=== PATIENT | male | born 1995 | race Caucasian/White ===

== ENCOUNTER 2021-06-29 20:00 | Emergency (ER) | payer OTHER, SELFPAY ==
[2021-06-29 20:15] VITALS: BP 148/87; PULSE 90; RESP 20; TEMP 37; O2SAT 99
--- NOTE | 2021-06-29 20:47 | ED.UPPEXIN ---
HPI - Extremity Injury (Upper) General Stated Complaint: shoulder pain Source: patient and RN notes reviewed Mode of arrival: ambulatory Limitations: no limitations History of Present Illness complaint: injury to: right and shoulder Onset (ago): hour(s) (2) Other injuries: none Handedness: right Place: home Severity: moderate Relieving factors: none Exacerbating factors: movement of extremity Context: other ( Patient states that he threw a tennis ball to his dog then had pain in his right shoulder.) Associated symptoms: denies other symptoms Related Data Home Medications Medication Instructions Recorded Confirmed No Home Medications 06/29/21 06/29/21 Allergies Allergy/AdvReac Type Severity Reaction Status Date / Time No Known Allergies Allergy Verified 06/29/21 20:55 Review of Systems Review of Systems: All systems reviewed & are unremarkable except as noted in HPI and below PMFSH Past Medical History Medical History (Updated 06/29/21 @ 20:54 by Danny Fitzgerald MD) Arnold-Chiari malformation Surgical History Surgical History (Updated 06/29/21 @ 20:49 by Danny Fitzgerald MD) No pertinent past surgical history Social History Social History (Updated 06/29/21 @ 20:49 by Danny Fitzgerald MD) Smoking status: Former smoker Exam Const: General: healthy appearing, no acute distress and alert Nutritional Appearance: well nourished Orientation/consciousness: patient oriented x3 HENMT: Head: normal to inspection Ears: external ears normal Eyes: Conjunctivae: conjunctivae normal Pupils: Equal, round and reactive pupils present EOM: EOMs intact bilaterally Neck: Neck: normal visual inspection Resp: Effort & Inspection: normal respiratory effort Auscultation: clear to auscultation bilaterally Cardio: Rate: regular rate Rhythm: regular rhythm GI: GI Palp: Yes Soft to palpation and No Tenderness to palpation present (GI) Auscultation: normal bowel sounds Back/Spine/Pelvis: Thoracic/Lumbar Spine: thoraco-lumbar ROM normal Skin: General skin exam: normal color Rashes: no rashes Neuro: General: patient oriented x3, moves all extremities, no meningeal signs and no focal motor deficits Speech: normal speech Gait exam (Neuro): Normal gait present Extrem: General: normal to inspection Right upper extremity: shoulder/upper arm normal to inspection, tenderness (moderate over the posterior latissimus dorsi and anterior rotator cuff) and abnormal ROM pain with active ROM in ADduction, in internal rotation and external rotation- Psych: Appearance: grossly normal and well kempt Mental Status: mental status grossly normal Affect: normal affect Attitude: cooperative Thought content: Yes Normal thought content present Discharge Plan Discharge Clinical Impression: Strain of right shoulder Qualifiers: Encounter type: initial encounter Qualified Code(s): S46.911A - Strain of unspecified muscle, fascia and tendon at shoulder and upper arm level, right arm, initial encounter Patient Disposition: Home, Self-Care Condition: Stable Instructions: Muscle Strain (ED), Rotator Cuff Injury (ED) Additional Instructions: wear sling for comfort. Use Tylenol and or Motrin as needed for pain. Follow up with her primary care physician may consider orthopedic referral if symptoms persist Prescriptions: No Action No Home Medications RF: 0 Follow-up/Referrals: Dao Bedoya MD [Primary Care Provider] - Stand Alone Forms: Work/School Release IP Time of Disposition: 20:54
[2021-06-29] MEDS: KETOROLAC (*BKC) 60 MG/2 ML VIAL IM (20:56)
[2021-06-29 20:57] VITALS: BP 137/87; PULSE 90; RESP 20; TEMP 37; O2SAT 97
== END 2021-06-29 21:05 | disposition home or self-care (01) ==
PROVIDERS: Emergency Provider Emergency Medicine; PCP Internal Medicine
DX: S46.911A Strain of unspecified muscle, fascia and tendon at shoulder and upper arm level, right arm, initial encounter (principal)
CPT/HCPCS: 96372; 99283; A4565; J1885

== ENCOUNTER 2021-07-14 18:02 | Outpatient (CLI) | payer OTHER, SELFPAY ==
--- NOTE | ~2021-07-14 | XR_ITS ---
EXAMINATION: XR shoulder RT min 2V DATE: 07/14/2021 18:21 INDICATION: Right shoulder pain post throwing injury one week prior TECHNIQUE: AP internally and externally rotated, AP oblique externally rotated and transscapular Y vi ews of the right shoulder were obtained. COMPARISON: None FINDINGS: Normal alignment. No fracture. Glenohumeral joint is normal. Acromioclavicular joint is normal. Soft tissues are unremarkable. Visualized portions of the lungs are clear. IMPRESSION: Negative right shoulder radiographs. Reviewed, dictated and finalized at location A.
--- NOTE | ~2021-07-14 | XR_ITS ---
EXAMINATION:XR_[id number]_CR DATE: 07/14/2021 18:21 INDICATION: Neck pain post throwing injury TECHNIQUE: AP, lateral and odontoid views of the cervical spine are provided. COMPARISON: None FINDINGS: Straightening of the normal cervical lordosis which could be positional or secondary to muscle spasm. Odontoid is intact. Normal atlantoaxial interval. Vertebral body heights are normal. Disc spaces ar e normal. No significant facet or uncovertebral osteoarthritis. Prevertebral soft tissues are normal. IMPRESSION: 1. Straightening of the normal cervical lordosis which can be positional or secondary to muscle spasm . Otherwise unremarkable cervical spine radiographs. Reviewed, dictated and finalized at location A. IMPRESSION: 1. Straightening of the normal cervical lordosis which can be positional or sec ondary to muscle spasm. Otherwise unremarkable cervical spine radiographs.
== END 2021-07-14 18:03 | disposition home or self-care (01) ==
LOC: CHSIMG 18:04
PROVIDERS: PCP Internal Medicine; Visit Provider Internal Medicine
DX: M25.511 Pain in right shoulder (principal); M54.2 Cervicalgia
CPT/HCPCS: 72040; 73030

== ENCOUNTER 2021-07-28 17:00 | Outpatient (RCR) | payer OTHER, SELFPAY ==
--- NOTE | 2021-07-28 17:56 | PTOPEVAL ---
Thank you for referring Jamie López to [facility].? The patient is scheduled to be seen for therapy? __2__x/week for 10 visits. Please review, sign, date and return this plan of care IMELDA. I agree with and certify that the following plan of care is medically necessary. Referring Physician Date Admitting Provider: Attending Provider: Dao Bedoya MD Referring Provider: *PT Outpatient Evaluation Start: 07/28/21 17:04 Freq: Status: Active Protocol: Document 07/28/21 17:08 [facility] (Rec: 07/28/21 17:56 [facility] [id number]) Therapy Assessment Status Assessment Status Assessment Status Evaluation Outpatient Past Medical History Neurological History Hx Other Neurological Disorders Yes: arnold chiari syndrome Evaluation Information Problem Diagnosis right shoulder and scapular pain Onset 06/23/21 Subjective Information Pt. reports that he developed Query Text:As Reported By Patient/ shoulder after throwing a Family tennis ball with his dog. He states that initial pain was intense and went to the ER. He states that he underwent xray which did not reveal anything. He describes pain through the area of the right shoulder blade. Pt. reports that pain is most with movement. He states that pain is triggered with reaching overhead and behind the back. He reports pain will wake him at night. He states that his goal is to decrease his right shoulder pain. Prior Level of Function Activity Level (Last 3 Months) Occupation factory work Hand Dominance Right Activity of Daily Living Ability Independent Indoor/Home Mobility Independent Community Mobility Independent Stairs Ability Independent Functional Cognition (Planning, Shopping Independent , Taking Medications) Cooking Yes Cleaning Yes Laundry Yes Shopping Yes Driving Yes Pain Assessment Timing of Pain Assessment Timing of Pain Assessment Pre-Treatment Pain Scale Pain Scale Used Numeric (1 - 10) Self Report Pain Assessment Right Scapula Reported Pain Level 4 Pain Aggravating Factors Exercise/Activity,Lifting Pain Behaviors
--- NOTE | 2021-09-27 15:02 | PTOPEVAL ---
Thank you for referring Jamie López to [facility].? The patient is scheduled to be seen for therapy? ____x/week for ___ weeks. Please review, sign, date and return this plan of care IMELDA. I agree with and certify that the following plan of care is medically necessary. Referring Physician Date Admitting Provider: Attending Provider: Dao Bedoya MD Referring Provider: *PT Outpatient Evaluation Start: 07/28/21 17:04 Freq: Status: Active Protocol: Document 09/27/21 14:01 [facility] (Rec: 09/27/21 15:00 [facility] [id number]) Therapy Assessment Status Assessment Status Assessment Status Re-evaluation Outpatient Past Medical History Neurological History Hx Other Neurological Disorders Yes: arnold chiari syndrome Evaluation Information Problem Diagnosis neck pain and R shoulder pain Onset 06/23/21 Subjective Information The patient reports that since Query Text:As Reported By Patient/ he was here last the pain Family significantly increased so he has been off of work. He states that he has been resting quite a bit and has only done house chores. He states that pushing, pulling, and lifting are the most difficult actions to perform due to his shoulder pain. The patient states when he extends his neck he gets a shooting pain sensation down the R arm. The shooting sensation is down the whole arm into the entire hand. Pain Assessment Timing of Pain Assessment Timing of Pain Assessment Assessment Pain Scale Pain Scale Used Numeric (1 - 10) Self Report Pain Assessment Neck Reported Pain Level 0 Pain Description Pinching Additional Pain Comments no pain but numbness with extension Right Scapula Reported Pain Level 5 Greatest Pain Intensity 9 Pain Score Pain Score 5,0: Self Report Interventions Used Interventions Used By Clinicians Activity or ADL's,Exercise Cervical and Lumbar ROM Cervical ROM Cervical Flexion (0-60) 64 Query Text:Active in Degrees Cervical Extension (0-70) 38 Query Text:Active in Degrees Cervical Lateral Flexion Right (0-50) 30 Query Text:Active in Degrees Cervical Lateral Flexion Left (0-50) 41 Query Text:Active in Degrees Cervical Rotation Right (0-90) 60 Query Text:Active in Degrees Cervical
--- NOTE | 2021-10-20 11:01 | PTOPEVAL ---
Thank you for referring Jamie López to [facility].? The patient is scheduled to be seen for therapy? ____x/week for ___ weeks. Please review, sign, date and return this plan of care IMELDA. I agree with and certify that the following plan of care is medically necessary. Referring Physician Date Admitting Provider: Attending Provider: Dao Bedoya MD Referring Provider: *PT Outpatient Evaluation Start: 07/28/21 17:04 Freq: Status: Active Protocol: Document 10/20/21 10:00 [facility] (Rec: 10/20/21 10:59 [facility] [id number]) Therapy Assessment Status Assessment Status Assessment Status Progress Outpatient Past Medical History Neurological History Hx Other Neurological Disorders Yes: arnold chiari syndrome Evaluation Information Problem Diagnosis neck pain and R shoulder pain Onset 06/23/21 Subjective Information Patient states that since Query Text:As Reported By Patient/ beginning therapy on 09/27 he Family is feeling a lot better. He reports that he is able to move his neck and shoulder a lot better and without pain. The patient reports that he is doing the exercises at home. Pain Assessment Timing of Pain Assessment Timing of Pain Assessment Assessment Pain Scale Pain Scale Used Numeric (1 - 10) Self Report Pain Assessment Neck Reported Pain Level 1 Right Scapula Reported Pain Level 3 Pain Score Pain Score 1,3: Self Report Interventions Used Interventions Used By Clinicians Activity or ADL's,Exercise Cervical and Lumbar ROM Cervical ROM Cervical Flexion (0-60) 68 Query Text:Active in Degrees Cervical Extension (0-70) 72 Query Text:Active in Degrees Cervical Lateral Flexion Right (0-50) 42 Query Text:Active in Degrees Cervical Lateral Flexion Left (0-50) 50 Query Text:Active in Degrees Cervical Rotation Right (0-90) 72 Query Text:Passive in Degrees Cervical Rotation Left (0-90) 71 Query Text:Passive in Degrees Upper Extremity Muscle Strength Testing Scapular/Shoulder Right Shoulder Flexion Strength 5 Normal Shoulder Abduction Strength 5 Normal Shoulder Medial Rotation Strength 5 Normal Shoulder Lateral Rotation Strength 4+ Good + Palpation Assessment Palpation Palpation Patient continues to have tenderness in the inferior medial aspect of the scapula near the inferior border. General Exercise General Exercises Exercise Description TherEx Query Text:Record Sets, Reps, - iso scapular retraction x 3
--- NOTE | 2021-12-24 14:59 | PTOPEVAL ---
Thank you for referring Jamie López to [facility].? The patient is scheduled to be seen for therapy? ____x/week for ___ weeks. Please review, sign, date and return this plan of care IMELDA. I agree with and certify that the following plan of care is medically necessary. Referring Physician Date Admitting Provider: Attending Provider: Dao Bedoya MD Referring Provider: *PT Outpatient Evaluation Start: 07/28/21 17:04 Freq: Status: Active Protocol: Document 12/17/21 17:00 [facility] (Rec: 12/24/21 14:58 [facility] [id number]) Therapy Assessment Status Assessment Status Assessment Status Re-evaluation Outpatient Past Medical History Neurological History Hx Other Neurological Disorders Yes: arnold chiari syndrome Evaluation Information Problem Diagnosis neck pain and R shoulder pain Onset 06/23/21 Subjective Information mr. lópez has not been to Query Text:As Reported By Patient/ therapy in several months. he Family reports he got sick towards the end of his last plan of care and then switched jobs. he reports he continues to have problems with his neck, but reports his R shoulder is now fine. he reports the pain occasionally will radiate from neck into the R shoulder blade. he report his neck hurts the worst on the R side when he leans to the L and looks up. 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 Pain Assessment Timing of Pain Assessment Timing of Pain Assessment Assessment Pain Scale Pain Scale Used Numeric (1 - 10) Self Report Pain Assessment Neck Reported Pain Level 6 Right Scapula Reported Pain Level 0 Pain Score Pain Score 6,0: Self Report Interventions Used Interventions Used By Clinicians Activity or ADL's,Education, Electrical Stimulation, Exercise,Heat,Manual Therapy Techniques Cervical and Lumbar ROM Cervical ROM Cervical Flexion (0-60) 60 Query Text:Active in Degrees Cervical Extension (0-70) 50 Query Text:Active in Degrees Cervical Lateral Flexion Right (0-50) 37 Query Text:Active in Degrees Cervical Lateral Flexion Left (0-50) 38 Query Text:Active in Degrees Cervical Rotation Right (0-90) 78 Query Text:Active in Degrees Cervical Rotation Left (0-90)
== END 2021-12-23 16:28 | disposition still patient (30) ==
LOC: CHSPT 17:00
PROVIDERS: PCP Internal Medicine; Visit Provider Internal Medicine
DX: M25.511 Pain in right shoulder (principal); M54.2 Cervicalgia; M47.812 Spondylosis without myelopathy or radiculopathy, cervical region
CPT/HCPCS: 97014; 97110; 97140; 97161; 97164; G0283

== ENCOUNTER 2021-09-02 20:20 | Emergency (ER) | payer OTHER, SELFPAY ==
[2021-09-02 20:49] VITALS: BP 136/82; PULSE 88; RESP 20; TEMP 36.5; O2SAT 96
--- NOTE | 2021-09-02 20:54 | ED.UPPEXIN ---
HPI - Extremity Injury (Upper) General Chief Complaint: Extremity Injury, Upper Stated Complaint: pain in chest and shoulder Source: patient and family Mode of arrival: ambulatory History of Present Illness HPI narrative: this is 26-year-old gentleman that presents with some right upper back muscle tenderness with palpation has decreased range of motion in his right shoulder, with no numbness or tingling no weakness in his right arm no ataxia no gait abnormality no headaches no blurry vision. Patient does have a history of Arnold-Chiari malformation with no neurological deficits no weakness in his arms or legs no gait abnormality no dysuria no blurry vision no fever chills. Patient approximately 2 weeks ago was throwing a tennis ball and had pain and tenderness with decreased rotation and movement of his right shoulder with pain and tenderness in the muscle group of his right upper back area. complaint: injury to: shoulder Handedness: right Place: home Severity: moderate Severity scale (1-10): 6 Relieving factors: immobilization and medication Exacerbating factors: movement of extremity Context: other ( throwing a tennis ball) Associated symptoms: denies other symptoms Related Data Allergies Allergy/AdvReac Type Severity Reaction Status Date / Time horse dander Allergy Difficulty Verified 09/02/21 20:48 Breathing Review of Systems Review of Systems: All systems reviewed & are unremarkable except as noted in HPI and below PMFSH Past Medical History Medical History Arnold-Chiari malformation Surgical History Surgical History No pertinent past surgical history Social History Social History Smoking status: Former smoker Exam Const: General: no acute distress and alert Orientation/consciousness: patient oriented x3 HENMT: Head: normal to inspection Eyes: Conjunctivae: conjunctivae normal Pupils: Equal, round and reactive pupils present Neck: Neck: normal visual inspection Chest: Chest palpation & inspection: normal inspection of the chest Cardio: Rate: regular rate Rhythm: regular rhythm GI: GI Palp: Yes Soft to palpation Percussion: Yes normal to percussion : Testes: Testes normal Urinary Catheter: Urinary Catheter: patent and draining Back/Spine/Pelvis: Back: no CVA tenderness Skin: General skin exam: normal color Rashes: no rashes Neuro: General: patient oriented x3, moves all extremities, no meningeal signs, no focal motor deficits and CN's II-XI intact bilaterally Cranial nerves: Yes Nystagmus not present Speech: normal speech Gait exam (Neuro): Normal gait present Extrem: Other: Right upper back area muscle tenderness with palpation with empty can sign positive on the right Psych: Mental Status: mental status grossly normal Affect: normal affect Course Course Emergency Course: patient received IM Toradol and IM muscle relaxant the intensity of pain has improved, will send medication to his pharmacy and have patient follow-up with his primary care physician for possible MRI if symptoms persist. Critical Care Time Critical Care Time Critical Care Time: No Discharge Plan Discharge Clinical Impression: Rotator cuff strain Qualifiers: Encounter type: initial encounter Laterality: right Qualified Code(s): S46.011A - Strain of muscle(s) and tendon(s) of the rotator cuff of right shoulder, initial encounter Patient Disposition: Home, Self-Care Condition: Stable Instructions: Antibiotic Form Additional Instructions: advised patient to take medicine as prescribed use warm compress to right upper back area and follow-up primary care physician within 1 week for further evaluation treatment. Prescriptions: New tramadol [Ultram] 50 mg tablet 50 mg PO Q6H PRN (Reason: pain) Qty: 10 RF: 0 cyclobenz
[2021-09-02] MEDS: KETOROLAC (*BKC) 60 MG/2 ML VIAL IM (21:12)
[2021-09-02] MEDS: ORPHENADRINE CITRATE 100 MG TABLET.ER PO (21:14)
[2021-09-02 21:23] VITALS: BP 128/81; PULSE 75; RESP 18; O2SAT 98
== END 2021-09-02 21:40 | disposition home or self-care (01) ==
PROVIDERS: Emergency Provider Emergency Medicine; PCP Internal Medicine
DX: S46.011A Strain of muscle(s) and tendon(s) of the rotator cuff of right shoulder, initial encounter (principal)
CPT/HCPCS: 96372; 99283; A9270; J1885

== ENCOUNTER 2021-09-14 09:18 | Outpatient (CLI) | payer OTHER, SELFPAY ==
--- NOTE | ~2021-09-14 | MR_ITS ---
EXAMINATION: MR cervical spine wo con EXAM DATE: 09/14/2021 10:25 INDICATION: Right Shoulder Pain /Type 1 Arnold Chiari malformation. TECHNIQUE: Multi-sequential, multiplanar MR images of the cervical spine were obtained without contra st. Axial T2, axial T2 MERGE sequence. Sagittal T1, T2, T2 fat saturation images also obtained. Th ere is no prior study for comparison. FINDINGS: Mildly low-lying cerebellar tonsils not meeting criteria for Chiari I malformation. Vertebral body and disc heights are well-maintained. Vertebral body and disc heights are well-maintai dodie. There are no suspicious marrow signal abnormalities. The spinal cord signal intensity and intri nsic morphology is normal. Paraspinal soft tissue is unremarkable. Level by level evaluation: C2-C3: Disc does not extend beyond the endplate margin. Uncovertebral joint arthropathy: None. Facet joint arthropathy: Mild left. Neural foraminal stenosis: No stenosis. Central canal stenosis: No stenosis. C3-C4: Disc does not extend beyond the endplate margin. Uncovertebral joint arthropathy: Mild bilateral. Facet joint arthropathy: Mild bilateral. Neural foraminal stenosis: Mild right. Central canal stenosis: No stenosis. C4-C5: Disc does not extend beyond the endplate margin. Uncovertebral joint arthropathy: Mild bilateral. Facet joint arthropathy: Mild bilateral. Neural foraminal stenosis: No stenosis. Central canal stenosis: No stenosis. C5-C6: Disc does not extend beyond the endplate margin. Uncovertebral joint arthropathy: Mild bilateral. Facet joint arthropathy: Mild bilateral. Neural foraminal stenosis: Mild right. Central canal stenosis: No stenosis. C6-C7: Disc does not extend beyond the endplate margin. Uncovertebral joint arthropathy: Mild bilateral. Facet joint arthropathy: Mild bilateral. Neural foraminal stenosis: Mild right. Central canal stenosis: No stenosis. C7-T1: Disc does not extend beyond the endplate margin. Uncovertebral joint arthropathy: None. Facet joint arthropathy: None. Neural foraminal stenosis: No stenosis. Central canal stenosis: No stenosis. IMPRESSION: 1. Mild cervical spondylosis. Reviewed, dictated and finalized at location A. RPRISE CLOUD ARCHITECT
--- NOTE | ~2021-09-14 | MR_ITS ---
EXAMINATION: MR shoulder RT wo con DATE: 09/14/2021 10:26 INDICATION: One and a half months of right shoulder pain TECHNIQUE: Magnetic resonance imaging (MRI) of the right shoulder was performed without intravenous c ontrast. Sequences included axial PD-weighted FS FSE, coronal oblique PD-weighted FS FSE, coronal obl ique T2-weighted FS FSE, sagittal PD-weighted FS FSE, and sagittal T1-weighted SE. COMPARISON: Right shoulder radiographs dated 07/14/2021 FINDINGS: Coracoacromial arch: The acromion undersurface is curved in morphology (type II). The coracoacromial ligament is normal. A cromioclavicular joint is normal. Rotator cuff: The supraspinatus, infraspinatus and teres minor tendons are normal. The subscapularis tendon is norm al. Normal rotator cuff muscle bulk and signal. Biceps tendon, glenoid labrum and glenohumeral cartilage: Long head of the biceps tendon is normal. Small partial-thickness tear at the 11:00 position of the p osterior superior glenoid labrum best appreciated on axial series 2, images 7 & 8. Glenohumeral carti jaden is normal. Fluid: Physiologic amount of fluid in the glenohumeral joint and biceps tendon sheath. No loose osteochondra l bodies. No abnormal fluid signal in the subacromial/subdeltoid bursa to suggest bursitis. Bones: Normal marrow signal with no edema, fracture or abnormal marrow replacing process. IMPRESSION: 1. Small partial-thickness tear at the posterior superior glenoid labrum. Reviewed, dictated and finalized at location A. NE ERECTOR
== END 2021-09-14 09:19 | disposition home or self-care (01) ==
LOC: CHSIMG 09:19
PROVIDERS: PCP Internal Medicine; Visit Provider Internal Medicine
DX: M25.511 Pain in right shoulder (principal); G93.5 Compression of brain
CPT/HCPCS: 72141; 73221

== ENCOUNTER 2021-12-02 16:23 | Outpatient (CLI) | payer OTHER, SELFPAY ==
[2021-12-02 16:40] LABS: Add Urine Microscopic? NO; Appearance Urine Clear (Clear); Bilirubin Urine Negative (Negative); Blood Urine Negative (Negative); Color Urine Light Yellow (Yellow); Glucose Urine UA Negative (Negative); Ketones Urine Negative (Negative); Leukocyte Esterase Ur Negative LEU/UL (Negative); Nitrate Urine Negative (Negative); Protein Urine Negative (Negative); Specific Grav Ur 1.015 (1.010-1.020); Urobilinogen Urine 0.2 mg/dL (0.2-1.0)
[2021-12-02 16:41] LABS: Basophils Absolute Auto 0.04 K/mm3 (0.00-0.10); Basophils Percent Auto 0.4 % (0.0-1.0); Eosinophils Absolute Auto 0.21 K/mm3 (0.02-0.50); Eosinophils Percent Auto 2.1 % (1.0-6.0); Hematocrit 43.3 % (40.0-54.0); Immature Granulocyte Absolute 0.02 K/mm3 (0.00-0.00); Immature Granulocyte Percent A 0.2 % (0.0-0.0); Lymphocytes Absolute Auto 1.94 K/mm3 (1.10-4.50); Lymphocytes Percent Auto 19.5 % (18.0-42.0); Mean Corpuscular HGB Conc 34.6 g/dL (32.0-36.0); Mean Corpuscular Volume 92.3 fL (78.0-102.0); Mean Platelet Volume 10.8 fl (8.7-11.0); Neutrophils Percent Auto 70.8 % (50.0-70.0); Platelet Count Result 247 K/mm3 (150-420); Red Blood Count 4.69 M/mm3 (4.70-6.10); White Blood Count 9.9 K/mm3 (4.8-10.8)
[2021-12-02 16:49] LABS: Hemoglobin A1C 5.3 % (<5.7)
[2021-12-02 17:03] LABS: Alanine Aminotransferase 35 U/L (16-63); Albumin Level 4.7 g/dL (3.4-5.0); Alkaline Phosphatase 62 U/L (46-116); Amylase 79 U/L (25-115); Anion Gap 11 mmol/L (8-16); Aspartate Amino Transferase 16 U/L (15-37); Bilirubin,Total 0.9 mg/dL (0.00-1.00); Blood Urea Nitrogen 13 mg/dL (7-18); Calcium 9.5 mg/dL (8.5-10.1); Carbon Dioxide 28 mmol/L (21-32); Chloride 100 mmol/L (98-108); Creatine Kinase 188 U/L (39-308); Estimated Glomerular Filt Rate > 60; Free T4 Free Thyroxine 1.21 ng/dL (0.76-1.46); Glucose 120 mg/dL (70-99); Lipase 52 U/L (73-393); Osmolality Calculated 289 mOsm/kg (285-295); Potassium 3.5 mmol/L (3.5-5.1); Sodium 139 mmol/L (136-145); Thyroid Stimulating Hormone 0.97 uIU/mL (0.36-3.74); Total Protein 8.2 g/dL (6.4-8.2)
[2021-12-02 17:10] LABS: CRP < 0.5 mg/dL (0.0-0.9); Troponin I < 4.0 ng/L (0.00-60.4)
== END 2021-12-02 16:24 | disposition home or self-care (01) ==
LOC: CHSLAB 16:25
PROVIDERS: PCP Internal Medicine; Visit Provider Nurse Practitioner Family
DX: R55 Syncope and collapse (principal); R10.12 Left upper quadrant pain; E16.2 Hypoglycemia, unspecified; R06.02 Shortness of breath
CPT/HCPCS: 36415; 80053; 81003; 82150; 82550; 82553; 83036; 83690; 84439; 84443; 84484; 85025; 85380; 86140

== ENCOUNTER 2022-01-04 17:02 | Outpatient (RCR) | payer OTHER, SELFPAY | END 2022-01-11 09:26 | disposition home or self-care (01) | LOC: CHSPT 17:02 | PROVIDERS: PCP Internal Medicine; Visit Provider Internal Medicine | DX: M25.511 Pain in right shoulder (principal) | CPT/HCPCS: 97012; 97014; 97110; 97140; G0283 ==

== ENCOUNTER 2022-05-31 14:34 | Outpatient (CLI) | payer OTHER, SELFPAY ==
--- NOTE | ~2022-05-31 | XR_ITS ---
XR sinus min 3V DATE: 05/31/2022 15:09 INDICATION: Intermittent headache for 2 to 3 months TECHNIQUE: savanna Foy, lateral and submental vertical views COMPARISON: None FINDINGS: The paranasal sinuses and mastoid air cells appear normally developed and aerated. Normal s keith turcica. No fracture or bone destruction of the cranial vault. IMPRESSION: No significant abnormality of the paranasal sinuses or mastoid air cells Reviewed, dictated and finalized at location B.
[2022-05-31 15:06] LABS: Basophils Absolute Auto 0.02 K/mm3 (0.00-0.10); Basophils Percent Auto 0.3 % (0.0-1.0); Eosinophils Absolute Auto 0.33 K/mm3 (0.02-0.50); Eosinophils Percent Auto 5.3 % (1.0-6.0); Hematocrit 42.5 % (40.0-54.0); Hemoglobin 14.3 g/dL (14.0-18.0); Immature Granulocyte Absolute 0.02 K/mm3 (0.00-0.00); Immature Granulocyte Percent A 0.3 % (0.0-0.0); Lymphocytes Absolute Auto 1.74 K/mm3 (1.10-4.50); Lymphocytes Percent Auto 28.2 % (18.0-42.0); Mean Corpuscular HGB Conc 33.6 g/dL (32.0-36.0); Mean Corpuscular Hemoglobin 31.3 pg (27.0-31.0); Mean Platelet Volume 10.6 fl (8.7-11.0); Monocytes Absolute Auto 0.45 K/mm3 (0.10-0.90); Monocytes Percent Auto 7.3 % (2.0-11.0); Neutrophils Absolute Auto 3.6 K/mm3 (1.7-7.2); Neutrophils Percent Auto 58.6 % (50.0-70.0); Platelet Count Result 204 K/mm3 (150-420); Red Blood Count 4.57 M/mm3 (4.70-6.10); Red Cell Distribution Width 11.9 % (11.6-14.4); White Blood Count 6.2 K/mm3 (4.8-10.8)
[2022-05-31 15:19] LABS: Add Urine Microscopic? YES; Appearance Urine Cloudy (Clear); Bilirubin Urine Negative (Negative); Blood Urine Negative (Negative); Color Urine Light Yellow (Yellow); Glucose Urine UA Negative (Negative); Ketones Urine Negative (Negative); Leukocyte Esterase Ur Negative (Negative); Nitrate Urine Negative (Negative); Protein Urine Negative (Negative); Specific Grav Ur 1.015 (1.010-1.020); Urobilinogen Urine 0.2 mg/dL (0.2-1.0)
[2022-05-31 15:30] LABS: Amphetamine Screen Urine Negative (Negative); Barbiturate Screen Urine Negative (Negative); Benzodiazepines Screen Urine Negative (Negative); Cannabinoid Screen Urine Positive (Negative); Cocaine Screen Urine Negative (Negative); Methadone Screen Urine Negative (Negative); Opiate Screen Urine Negative (Negative); Phencyclidine Screen Urine Negative (Negative)
[2022-05-31 15:36] LABS: Alanine Aminotransferase 25 U/L (16-63); Albumin Level 4.5 g/dL (3.4-5.0); Alkaline Phosphatase 59 U/L (46-116); Amylase 65 U/L (25-115); Anion Gap 10 mmol/L (8-16); Aspartate Amino Transferase 17 U/L (15-37); Bilirubin,Total 0.9 mg/dL (0.00-1.00); Blood Urea Nitrogen 10 mg/dL (7-18); Calcium 9.1 mg/dL (8.5-10.1); Carbon Dioxide 27 mmol/L (21-32); Chloride 105 mmol/L (98-108); Estimated Glomerular Filt Rate > 60; Glucose 96 mg/dL (70-99); Lipase 33 U/L (73-393); Osmolality Calculated 293 mOsm/kg (285-295); Potassium 4.1 mmol/L (3.5-5.1); Sodium 142 mmol/L (136-145); Thyroid Stimulating Hormone 2.17 uIU/mL (0.36-3.74); Total Protein 7.6 g/dL (6.4-8.2)
[2022-05-31 15:37] LABS: Amorphous Sediment Urine Heavy; Bacteria Urine None seen /hpf; RBC Urine None seen /hpf (0-2); Squamous Epithelial Cell Urine Rare /hpf (Few); WBC Urine None seen /hpf (0-3)
[2022-05-31 15:43] LABS: CRP < 0.2 mg/dL (0.0-0.9)
== END 2022-05-31 14:35 | disposition home or self-care (01) ==
LOC: CHSIMG 14:36
PROVIDERS: PCP Internal Medicine; Visit Provider Internal Medicine
DX: R10.9 Unspecified abdominal pain (principal); R51.9 Headache, unspecified; R11.0 Nausea; F32.A Depression, unspecified
CPT/HCPCS: 36415; 70220; 80053; 80307; 81001; 82150; 83690; 84443; 85025; 86140

== ENCOUNTER 2022-08-02 09:46 | Outpatient (CLI) | payer OTHER, SELFPAY ==
[2022-08-02 10:04] LABS: Basophils Absolute Auto 0.05 K/mm3 (0.00-0.10); Basophils Percent Auto 0.7 % (0.0-1.0); Eosinophils Absolute Auto 0.52 K/mm3 (0.02-0.50); Eosinophils Percent Auto 7.3 % (1.0-6.0); Hematocrit 42.5 % (40.0-54.0); Hemoglobin 14.6 g/dL (14.0-18.0); Immature Granulocyte Absolute 0.02 K/mm3 (0.00-0.00); Immature Granulocyte Percent A 0.3 % (0.0-0.0); Lymphocytes Absolute Auto 1.83 K/mm3 (1.10-4.50); Lymphocytes Percent Auto 25.6 % (18.0-42.0); Mean Corpuscular HGB Conc 34.4 g/dL (32.0-36.0); Mean Corpuscular Hemoglobin 31.7 pg (27.0-31.0); Mean Corpuscular Volume 92.2 fL (78.0-102.0); Mean Platelet Volume 11.1 fl (8.7-11.0); Monocytes Absolute Auto 0.45 K/mm3 (0.10-0.90); Monocytes Percent Auto 6.3 % (2.0-11.0); Neutrophils Absolute Auto 4.3 K/mm3 (1.7-7.2); Neutrophils Percent Auto 59.8 % (50.0-70.0); Platelet Count Result 204 K/mm3 (150-420); Red Blood Count 4.61 M/mm3 (4.70-6.10); Red Cell Distribution Width 12.1 % (11.6-14.4); White Blood Count 7.2 K/mm3 (4.8-10.8)
[2022-08-02 10:08] LABS: Appearance Urine Clear (Clear); Bilirubin Urine Negative (Negative); Blood Urine Negative (Negative); Glucose Urine UA Negative (Negative); Ketones Urine Negative (Negative); Leukocyte Esterase Ur Negative LEU/UL (Negative); Nitrate Urine Negative (Negative); Protein Urine Negative (Negative); Urobilinogen Urine 0.2 mg/dL (0.2-1.0); pH Urine 6.5 (5.0-8.0)
[2022-08-02 10:11] LABS: Add Urine Microscopic? NO; Color Urine Light Yellow (Yellow)
[2022-08-02 10:46] LABS: Alanine Aminotransferase 36 U/L (16-63); Albumin Level 4.1 g/dL (3.4-5.0); Alkaline Phosphatase 56 U/L (46-116); Amylase 76 U/L (25-115); Anion Gap 9 mmol/L (8-16); Aspartate Amino Transferase 20 U/L (15-37); Bilirubin,Total 0.5 mg/dL (0.00-1.00); Blood Urea Nitrogen 12 mg/dL (7-18); Calcium 8.9 mg/dL (8.5-10.1); Carbon Dioxide 26 mmol/L (21-32); Chloride 107 mmol/L (98-108); Estimated Glomerular Filt Rate > 60; Free T4 Free Thyroxine 1.04 ng/dL (0.76-1.46); Glucose 101 mg/dL (70-99); Lipase 50 U/L (73-393); Osmolality Calculated 293 mOsm/kg (285-295); Potassium 4.3 mmol/L (3.5-5.1); Sodium 142 mmol/L (136-145); Thyroid Stimulating Hormone 1.66 uIU/mL (0.36-3.74); Total Protein 7.4 g/dL (6.4-8.2)
== END 2022-08-02 09:47 | disposition home or self-care (01) ==
LOC: CHSLAB 09:50
PROVIDERS: PCP Internal Medicine; Visit Provider Nurse Practitioner Family
DX: R19.09 Other intra-abdominal and pelvic swelling, mass and lump (principal); E16.2 Hypoglycemia, unspecified; R10.9 Unspecified abdominal pain
CPT/HCPCS: 36415; 80053; 81003; 82150; 83690; 84439; 84443; 85025; 87491; 87591; 87661

== ENCOUNTER 2022-08-05 08:04 | Outpatient (CLI) | payer OTHER, SELFPAY ==
--- NOTE | ~2022-08-05 | US_ITS ---
EXAMINATION: US soft tissue LE LT, US scrotum doppler DATE: 08/05/2022 09:21 INDICATION: Swelling at the left groin and upper leg TECHNIQUE: Multiple grayscale and Doppler ultrasound images of the scrotum as well as the region of c oncern at the left groin and upper leg were obtained. COMPARISON: None FINDINGS: The right testis measures 5.0 x 2.6 x 2.4 cm. The left testis measures 0.7 x 3.1 x 2.2 cm. Symmetric normal grayscale appearance to both testes. There is normal vascular flow to both testes. The right e pididymis is normal with normal vascular flow. The left epididymis is normal with normal vascular kristen w. Minimal fluid along the left testis and epididymis which is within normal limits. There is no vari cocele or hydrocele. There is a normal appearance to the subcutaneous fat and underlying musculature at the region of conc stephie at the left groin/upper inner thigh. No pathologically enlarged lymph nodes or other abnormal mas ses or fluid collections identified. IMPRESSION: 1. Normal ultrasound of the scrotum and left groin/upper inner thigh. Reviewed, dictated and finalized at location B. IMPRESSION: 1. Normal ultrasound of the scrotum and left groin/upper inner thigh.
== END 2022-08-05 08:05 | disposition home or self-care (01) ==
LOC: CHSIMG 08:06
PROVIDERS: PCP Internal Medicine; Visit Provider Nurse Practitioner Family
DX: R19.09 Other intra-abdominal and pelvic swelling, mass and lump (principal); M79.89 Other specified soft tissue disorders
CPT/HCPCS: 76870; 76882; 93976

== ENCOUNTER 2022-08-06 07:08 | Outpatient (CLI) | payer OTHER, SELFPAY ==
--- NOTE | ~2022-08-06 | MR_ITS ---
EXAMINATION: MR lumbar spine wo con DATE: 08/06/2022 07:43 INDICATION: Low back pain. TECHNIQUE: Magnetic resonance imaging (MRI) of the lumbar spine was performed without intravenous con trast. Sequences included sagittal T2-weighted FSE, sagittal T2-weighted FS FSE, sagittal T1-weighted FSE, and axial T2-weighted FSE. COMPARISON: Lumbar spine radiographs 09/29/2015 FINDINGS: Bone alignment is normal. Vertebral body heights are normal. There is mildly decreased disc height at L4-L5. The distal spinal cord signal intensity is normal. The conus medullaris is at L1. T he following disc levels are specifically discussed: L1-L2: The disc does not extend beyond the endplate margin. There is mild bilateral facet joint osteo arthritis. There is no neural foraminal stenosis. There is no central canal stenosis. L2-L3: The disc does not extend beyond the endplate margin. There is mild bilateral facet joint osteo arthritis. There is no neural foraminal stenosis. There is no central canal stenosis. L3-L4: The disc does not extend beyond the endplate margin. There is mild bilateral facet joint osteo arthritis. There is no neural foraminal stenosis. There is no central canal stenosis. L4-L5: The disc is bulging and has an annular fissure. There is mild bilateral facet joint osteoarthr itis. There is mild bilateral neural foraminal stenosis. There is mild central canal stenosis. L5-S1: The disc is bulging. There is mild bilateral facet joint osteoarthritis. There is mild bilater al neural foraminal stenosis. There is mild central canal stenosis. IMPRESSION: 1. Mild lumbar spondylosis. Reviewed, dictated and finalized at location A. IMPRESSION: 1. Mild lumbar spondylosis.
== END 2022-08-06 07:09 | disposition home or self-care (01) ==
LOC: CHSIMG 07:10
PROVIDERS: PCP Internal Medicine; Visit Provider Internal Medicine
DX: M54.50 Low back pain, unspecified (principal)
CPT/HCPCS: 72148

== ENCOUNTER 2022-08-19 07:58 | Outpatient (RCR) | payer OTHER, SELFPAY ==
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
== END 2022-09-09 19:00 | disposition home or self-care (01) ==
LOC: CHSPT 07:58
PROVIDERS: PCP Internal Medicine; Visit Provider Internal Medicine
DX: M54.50 Low back pain, unspecified (principal)
CPT/HCPCS: 97012; 97014; 97110; 97161; G0283

== ENCOUNTER 2024-12-22 16:36 | Emergency (ER) | payer OTHER, SELFPAY ==
[2024-12-22 16:38] VITALS: BP 144/90; PULSE 91; RESP 20; TEMP 36.6; O2SAT 96
--- NOTE | 2024-12-22 16:41 | ED.ABDPAIN ---
HPI - Abdominal Pain General Chief Complaint: Urogenital-Male Stated Complaint: abdominal pain Time Seen by Provider: 12/22/24 16:38 Source: patient Mode of arrival: ambulatory Limitations: no limitations History of Present Illness HPI narrative: patient is a 29-year-old male with left back and flank pain that started earlier prior to arrival. It has worked its way around to the left flank. He was nauseous and vomiting. He was sweating. No history of kidney stones. MD elicited complaint: abdominal pain ( left flank and left back) and flank pain ( Left) Pertinent past history: none Onset (ago): hour(s) ( 1-2) Pain Consistency: constant Location: L flank and other ( left lower /mid back) Severity: moderate Pain scale (0-10): 5 Quality: sharp Radiation: LLQ and L flank Migration to: LLQ and L flank Exacerbating factors: nothing Relieving factors: nothing Context: confirms other ( patient has left lower back and left flank pain for the past 1-2 hours with migrating anteriorly) Associated symptoms: nausea and vomiting Treatments prior to arrival: other ( none; Toradol in the ER helped pain) Related Data Allergies Allergy/AdvReac Type Severity Reaction Status Date / Time horse dander Allergy Difficulty Verified 12/22/24 16:44 Breathing Review of Systems Review of Systems: All systems reviewed & are unremarkable except as noted in HPI and below Constitutional: Constitutional: Reports no additional constitutional complaints Eyes: Eyes: Reports no additional eye complaints ENT: Reports system reviewed and no additional complaints, except as documented Cardiovascular: Cardiovascular: Reports no additional cardiovascular complaints Respiratory: Respiratory: Reports no additional respiratory complaints Gastrointestinal: Gastrointestinal: Reports no additional gastrointestinal complaints Genitourinary: Genitourinary: Reports no additional male genitourinary complaints Musculoskeletal: Musculoskeletal: Reports no additional musculoskeletal complaints Integumentary/Breasts: Skin/Breast: Reports system reviewed and no additional complaints, except as docu Neurologic: Reports system reviewed and no additional complaints, except as documented Psychiatric: Psychiatric: Reports no additional psychiatric complaints Endocrine: Endocrine: Reports no additional endocrine complaints Hematologic/Lymphatic: Hematologic/Lymphatic: Reports no additional hematologic/lymphatic complaints Allergic/Immunologic: Allergic/Immunologic: Reports no additional allergic/immunologic complaints PMFSH Past Medical History Medical History Arnold-Chiari malformation Surgical History Surgical History No pertinent past surgical history Social History Social History Smoking status: Current every day smoker Tobacco type: e-cigarettes/vaping Exam Const: General: healthy appearing Nutritional Appearance: well nourished Orientation/consciousness: patient oriented x3 HENMT: Head: normal to inspection Ears: external ears normal Face/Nose/Sinus: Normal external nose present Eyes: Conjunctivae: conjunctivae normal Pupils: Equal, round and reactive pupils present EOM: EOMs intact bilaterally Neck: Neck: normal visual inspection Chest: Chest palpation & inspection: normal inspection of the chest Resp: Effort & Inspection: normal respiratory effort and not labored Auscultation: clear to auscultation bilaterally and no crackles Cardio: Rate: regular rate Rhythm: regular rhythm Heart sounds: no murmurs GI: Inspection: non-distended GI Palp: Yes Soft to palpation, Yes Tenderness to palpation present (GI) ( left lower quadrant), No Guarding due to palpation present (GI), No Rigid due to palpation, No Hernia present, No Palpable mass present and No Rebound tenderness present Auscultation: normal bowel sounds : General: Yes bladder normal to palpation Back/Spine/Pelvis: Back: No no CVA tenderness and CVA tenderness ( left) Skin: General skin exam: normal color Rashes: no rashes Wounds: no wounds Neuro: General: patient oriented x3 Cranial nerves: Yes Nystagmus not present Speech: normal speech Gait exam (Neuro): Normal gait present Extrem: General: normal to inspection Psych: Mental Status: mental status grossly normal Affect: normal affect Attitude: cooperative Course Vital Signs Vital signs: Vital Signs Temperature 36.6 C 12/22/24 16:38 Pulse Rate 91 12/22/24 16:38 Respiratory Rate 20 12/22/24 16:38 Blood Pressure 144/90 H 12/22/24 16:38 Pulse Oximetry 96 12/22/24 16:38 Oxygen Delivery Room Air 12/22/24 16:38 Temperature 36.6 C 12/22/24 16:38 Pulse Rate 71 12/22/24 18:30 Respiratory Rate 17 12/22/24 18:30 Blood Pressure 140/82 12/22/24 18:30 Pulse Oximetry 96 12/22/24 18:30 Oxygen Delivery Room Air 12/22/24 16:38 MDM - Abdominal Pain MDM Narrative Medical decision making narrative: patient is a 29-year-old male with left flank pain over the past 1-2 hours. We will do a kidney stone workup at this time. Lab Data Attestation: I reviewed the patient's lab results. 12/22/24 16:52 12/22/24 16:52 Labs: Lab Results 12/22/24 12/22/24 Range/Units 16:45 16:52 WBC 7.0 (4.8-10.8) K/mm3 RBC 5.03 (4.70-6.10) M/mm3 Hgb 15.4 (14.0-18.0) g/dL Hct 45.6 (40.0-54.0) % MCV 90.7 (78.0-102.0) fL MCH 30.6 (27.0-31.0) pg MCHC 33.8 (32-36) g/dL RDW 11.9 (11.6-14.4) % Plt Count 227 (150-420) K/mm3 MPV 10.2 (8.7-11.0) fl Immature Gran % (Auto) 0.3 H (0.0-0.0) % Neut % (Auto) 56.9 (50.0-70.0) % Lymph % (Auto) 33.9 (18.0-42.0) % [place] % (Auto) 5.5 (2.0-11.0) % Eos % (Auto) 3.1 (1.0-6.0) % Baso % (Auto) 0.3 (0.0-1.0) % Lymph # (Auto) 2.38 (1.10-4.50) K/mm3 [place] # (Auto) 0.39 (0.10-0.90) K/mm3 Eos # (Auto) 0.22 (0.02-0.50) K/mm3 Baso # (Auto) 0.02 (0.00-0.10) K/mm3 Abs Immat Gran (auto) 0.02 H (0.00-0.00) K/mm3 Absolute Neuts (auto) 4.00 (1.70-7.20) K/mm3 Absolute Nucleated RBC 0.00 (0.00-0.00) K/mm3 Nucleated RBC % 0.0 (0-0.0) % PT 10.9 (9.50-12.1) Seconds INR 1.0 APTT 24.2 (23.9-30.70) Sec Sodium 142 (136-145) mmol/L Potassium 3.7 (3.5-5.1) mmol/L Chloride 103 (98-108) mmol/L Carbon Dioxide 30 (21-32) mmol/L Anion Gap 9 (4-12) mmol/L BUN 11 (7-18) mg/dL Creatinine 1.28 (0.70-1.30) mg/dL Estim Creat Clear Calc 85 ml/min Estimated GFR > 60 (59 - ) Glucose 114 H (70-99) mg/dL Calculated Osmolality 294 (285-295) mOsm/kg Calcium 8.7 (8.5-10.1) mg/dL Total Bilirubin 0.8 (0.00-1.00) mg/dL AST 17 (15-37) U/L ALT 42 (16-63) U/L Alkaline Phosphatase 80 (46-116) U/L Total Protein 7.9 (6.4-8.2) g/dL Albumin 4.4 (3.4-5.0) g/dL Lipase 17 (16-77) U/L Urine Color Yellow (Yellow) Urine Appearance Sl cloudy A (Clear) Urine pH 5.5 (5.0-8.0) Ur Specific [place] >= 1.030 H (1.010-1.020) Urine Protein 1+ H (Negative) Urine Glucose (UA) Negative (Negative) Urine Ketones Trace H (Negative) Ur Blood (Man) 3+ H (Negative) Urine Nitrate Negative (Negative) Urine Bilirubin Negative (Negative) Urine Urobilinogen 0.2 (0.2-1.0) mg/dL Leukocyte Esterase Rfl Negative (Negative) LINDA/UL Urine RBC 51-75 H (0-2) /hpf Urine WBC None seen (0-3) /hpf Urine Bacteria Trace (None) /hpf Urine Mucus Few H /lpf Imaging Data Attestation: I personally reviewed and interpreted this imaging study as follows: Radiologist's impression: ITS Impressions Abdomen/Pelvis CT 12/22/24 18:49 IMPRESSION: 1. Stone in the left ureterovesical junction with no left hydroureter or hydronephrotic changes. 4mm Discharge Plan Discharge Clinical Impression: Calculus, ureteral Patient Disposition: Home, Self-Care Condition: Stable Instructions: Ureteral Stones (ED) Additional Instructions: please follow-up with primary doctor in the next week. Please strain your urine to bring the stone to urologist. Please see a urologist in the next few weeks. Patient Language: Polish Prescriptions: New hydrocodone-acetaminophen 5-325 mg tablet 1 tablet PO Q8H PRN (Reason: pain) Qty: 20 0RF Rx Instructions: 1-2 tabs per dose tamsulosin [Flomax] 0.4 mg capsule 0.4 mg PO DAILY Qty: 30 0RF methylprednisolone [Medrol] 4 mg tablet 4 mg PO BID 3 Days Qty: 6 0RF Follow-up/Referrals: Dao Bedoya MD [Primary Care Provider] - Time of Disposition: 19:07
[2024-12-22] MEDS: KETOROLAC (*BKC) 60 MG/2 ML VIAL IM (16:53)
[2024-12-22 16:58] LABS: Basophils Absolute Auto 0.02 K/mm3 (0.00-0.10); Basophils Percent Auto 0.3 % (0.0-1.0); Eosinophils Absolute Auto 0.22 K/mm3 (0.02-0.50); Eosinophils Percent Auto 3.1 % (1.0-6.0); Hematocrit 45.6 % (40.0-54.0); Hemoglobin 15.4 g/dL (14.0-18.0); Immature Granulocyte Absolute 0.02 K/mm3 (0.00-0.00); Immature Granulocyte Percent A 0.3 % (0.0-0.0); Lymphocytes Absolute Auto 2.38 K/mm3 (1.10-4.50); Lymphocytes Percent Auto 33.9 % (18.0-42.0); Mean Corpuscular HGB Conc 33.8 g/dL (32-36); Mean Corpuscular Hemoglobin 30.6 pg (27.0-31.0); Mean Corpuscular Volume 90.7 fL (78.0-102.0); Mean Platelet Volume 10.2 fl (8.7-11.0); Monocytes Absolute Auto 0.39 K/mm3 (0.10-0.90); Monocytes Percent Auto 5.5 % (2.0-11.0); Neutrophils Percent Auto 56.9 % (50.0-70.0); Platelet Count Result 227 K/mm3 (150-420); Red Blood Count 5.03 M/mm3 (4.70-6.10); Red Cell Distribution Width 11.9 % (11.6-14.4)
[2024-12-22 16:59] LABS: Add Urine Microscopic? YES; Appearance Urine Sl Cloudy (Clear); Bilirubin Urine Negative (Negative); Blood Urine 3+ (Negative); Color Urine Yellow (Yellow); Glucose Urine UA Negative (Negative); Ketones Urine Trace (Negative); Leukocyte Esterase Ur Negative LEU/UL (Negative); Nitrate Urine Negative (Negative); Protein Urine 1+ (Negative); Specific Grav Ur >= 1.030 (1.010-1.020); Urobilinogen Urine 0.2 mg/dL (0.2-1.0); pH Urine 5.5 (5.0-8.0)
[2024-12-22 17:06] LABS: Bacteria Urine Trace /hpf; Mucus Urine Few /lpf; RBC Urine 51-75 /hpf (0-2); WBC Urine None seen /hpf (0-3)
[2024-12-22 17:13] LABS: Partial Thromboplastin Time 24.2 Sec (23.9-30.70); Prothrombin Time 10.9 Seconds (9.50-12.1)
[2024-12-22 17:14] LABS: Alanine Aminotransferase 42 U/L (16-63); Albumin Level 4.4 g/dL (3.4-5.0); Alkaline Phosphatase 80 U/L (46-116); Anion Gap 9 mmol/L (4-12); Aspartate Amino Transferase 17 U/L (15-37); Bilirubin,Total 0.8 mg/dL (0.00-1.00); Blood Urea Nitrogen 11 mg/dL (7-18); Calcium 8.7 mg/dL (8.5-10.1); Carbon Dioxide 30 mmol/L (21-32); Chloride 103 mmol/L (98-108); Estimated CRCL calculation 85 ml/min; Estimated Glomerular Filt Rate > 60; Glucose 114 mg/dL (70-99); Osmolality Calculated 294 mOsm/kg (285-295); Potassium 3.7 mmol/L (3.5-5.1); Sodium 142 mmol/L (136-145); Total Protein 7.9 g/dL (6.4-8.2)
[2024-12-22 17:15] LABS: Lipase 17 U/L (16-77)
[2024-12-22 17:30] VITALS: BP 130/75; PULSE 66; RESP 17; O2SAT 98
--- NOTE | 2024-12-22 17:54 | PC.NURSE ---
RN spoke with Radiology department about scan results taking awhile. They are investigating.
[2024-12-22 18:30] VITALS: BP 140/82; PULSE 71; RESP 17; O2SAT 96
--- NOTE | 2024-12-22 18:37 | PC.NURSE ---
Radiology department is on the phone with radiologist right now to further investigate read time on scan, ERP and patient is updated.
[2024-12-22] MEDS: predniSONE 20 MG TABLET PO (19:30)
[2024-12-22] MEDS: HYDROcodone/acetaminophen (*CRX) 5-325 MG TABLET 1 TAB PO (19:31)
[2024-12-22] MEDS: TAMSULOSIN HCL 0.4 MG CAPSULE PO (19:31)
[2024-12-22 19:42] VITALS: BP 128/64; PULSE 68; RESP 16; O2SAT 100
== END 2024-12-22 19:42 | disposition home or self-care (01) ==
PROVIDERS: Emergency Provider Emergency Medicine; PCP Internal Medicine
DX: N20.1 Calculus of ureter (principal); F17.290 Nicotine dependence, other tobacco product, uncomplicated
CPT/HCPCS: 36415; 74176; 80053; 81001; 83690; 85025; 85610; 85730; 96372; 99284; A9270; J1885; J7512